=== PATIENT | male | born 1945 | race Two or more races ===

== ENCOUNTER 2019-07-01 12:04 | Emergency (ER) | payer OTHER, SELFPAY ==
[~2019-07-01] VITALS: Ht 170.2 cm; Wt 67.0 kg
--- NOTE | 2019-07-01 12:13 | NUR ---
OTF. REPORT RECEIVED FROM EMS. PT HAS SMALL LAC ON LEFT HAND AT WORK. BLEEDING CONTROLLED. PT DENIES ANY OTHER SX. PT'S AOX4. RESPS EVEN AND UNLABORED. BP/SPO2 MONITORS IN PLACE. CALL LIGHT WITHIN REACH.
[2019-07-01] MEDS ORDERED: LIDOCAINE-MPF 1%, 2ML ONE (12:29)
[2019-07-01] MEDS ORDERED: LIDOCAINE-MPF 1%, 5ML INFIL ONE (12:30)
[2019-07-01] MEDS ORDERED: DIPH,PERTUSS(ACELL),TET VAC/PF 0.5 ML IM-VACC ONE ×2 (12:30)
[2019-07-01 12:35] VITALS: BP 177/87
--- NOTE | 2019-07-01 12:39 | NUR ---
TDAP GIVEN AT THIS TIME. PT TOLERATED WELL.
--- NOTE | 2019-07-01 12:54 | NUR ---
LIDOCAINE APPLIED BY KENN MENDIOLA. 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
[2019-07-01] MEDS ORDERED: NEOSPORIN OINT. PKT 1 PACKET ONE (13:07)
--- NOTE | 2019-07-01 13:31 | NUR ---
Patient given discharge instructions and they have confirmed that they understand the instructions. Patient ambulatory with steady gait.
== END 2019-07-01 13:33 ==
LOC: ED 13:27
DX: S61.412A Laceration without foreign body of left hand, initial encounter (principal); I10 Essential (primary) hypertension; E11.9 Type 2 diabetes mellitus without complications; E78.5 Hyperlipidemia, unspecified; X58.XXXA Exposure to other specified factors, initial encounter; Y93.89 Activity, other specified; Y92.69 Other specified industrial and construction area as the place of occurrence of the external cause; Y99.8 Other external cause status
CPT/HCPCS: 12041; 90471; 90715

== ENCOUNTER 2019-07-11 08:58 | Emergency (ER) | payer OTHER ==
[~2019-07-11] VITALS: Ht 170.2 cm; Wt 68.0 kg
[2019-07-11 09:09] VITALS: BP 190/75
--- NOTE | 2019-07-11 09:17 | NUR ---
PT HERE FOR SUTURE REMOVAL. HAD SUTURE PLACED IN LEFT HAND 10 DAYS AGO AFTER CUTTING HAND WITH GLASS AT WORK. SITTING ON CHRISTINE. JOHN.
== END 2019-07-11 10:06 | disposition home or self-care (01) ==
LOC: ED 09:50
DX: S01.01XD Laceration without foreign body of scalp, subsequent encounter (principal); I10 Essential (primary) hypertension; E78.5 Hyperlipidemia, unspecified; E11.9 Type 2 diabetes mellitus without complications; X58.XXXD Exposure to other specified factors, subsequent encounter
CPT/HCPCS: 99282